=== PATIENT | male | born 2000 | race Caucasian/White ===

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

== ENCOUNTER 2022-11-30 02:56 | Emergency (ER) | payer SELFPAY ==
[~2022-11-30] VITALS: Ht 165.1 cm; Wt 95.3 kg
[~2022-11-30 02:56] MED LIST changes: +METH4TAB10 PO
--- NOTE | 2022-11-30 03:23 | ED General ---
General Chief Complaint: Oral/Throat Problems Stated Complaint: THROAT PX X 2WKS Source of Information: Patient (JAMESRYDER) History of Present Illness Date Seen by Provider: Nov 30, 2022 Time Seen by Provider: 03:17 Initial Comments 22yo M with no PMH presents to the ED with c/o R sided sore throat with radiation to R ear that's been present for the past 1.5weeks. Pt states that he was tested on 11/18 for strep with culture which was negative. Pt has been taking 1000mg of ibuprofen Q3H for the past 4-5 days with relief. Last dose at 130am today. Pt has been using chloraseptic spray intermittently with no relief. States exacerbation of pain with swallowing. Denies nausea, vomiting, cough, nasal congestion, voice changes, rashes, food getting stuck in throat prior to onset, h/o seasonal allergies, recent sick contacts, and recent COVID test. Pt has been vaccinated for COVID. Timing/Duration: 1 Week Modifying Factors: improves with Medication Associated Systoms: Denies Symptoms (RYDER RAMIREZ) Allergies and Home Medications Allergies Coded Allergies: No Known Drug Allergies (Unverified , 05/19/12) Patient Home Medication List Home Medication List Reviewed: Yes (RYDER RAMIREZ) Home Medication List Reviewed: Yes (MIKE GANT MD) Amoxicillin/Clavulanate K (Augmentin 875-125 Tablet) 1 Tab Tablet, 1 TAB PO BID Prescribed by: STORMY JACOME on 10/05/1242 Antipyrine/Benzocaine/Glycerin (Auralgan Ear Drops) 14 Ml Drops, 1-2 DROPS EACH EAR Q 1 - 2 HRS PRN Prescribed by: STORMY JACOME on 10/05/1242 Methylprednisolone (Methylprednisolone Dose Pack) 4 Mg Tab.ds.pk, 4 MG PO UD Prescribed by: MOUNA FUENTES on 03/25/202001 Review of Systems Review of Systems Constitutional: no symptoms reported EENTM: throat pain Respiratory: no symptoms reported Cardiovascular: no symptoms reported Gastrointestinal: no symptoms reported Genitourinary: no symptoms reported Musculoskeletal: no symptoms reported Skin: no symptoms reported Psychiatric/Neurological: No Symptoms Reported Hematologic/Lymphatic: No Symptoms Reported Immunological/Allergic: no symptoms reported (RYDER RAMIREZ) All Other Systems Reviewed Negative Unless Noted: Yes (RYDER RAMIREZ) Past Ryoqmxl-Jdvhxv-Nlihnv Hx Patient Social History Tobacco Use?: No Substance use?: No Alcohol Use?: No Pt feels they are or have been: No (RYDER RAMIREZ) Immunizations Up To Date First/Initial COVID19 Vaccinat: 2020 Second COVID19 Vaccination Luis Enrique: 2020 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 (RYDER RAMIREZ) Seasonal Allergies Seasonal Allergies: No (RYDER RAMIREZ) Past Medical History Surgeries: Yes (DENTAL) Respiratory: No Cardiac: No Neurological: No Gastrointestinal: No Musculoskeletal: No Endocrine: No Cancer: No Psychosocial: No Integumentary: No Blood Disorders: No (RYDER RAMIREZ) Family Medical History No Pertinent Family Hx (RYDER RAMIREZ) Physical Exam Vital Signs Vital Signs - First Documented 11/30/22 03:03 Temp 36.8 Pulse 75 Resp 16 B/P (MAP) 132/76 (94) Pulse Ox 97 O2 Delivery Room Air (MIKE GANT MD) Vital Signs Capillary Refill : (RYDER RAMIREZ) Height, Weight, BMI Height: '" Weight: lbs. oz. kg; 34.00 BMI Method: General Appearance: No Apparent Distress, WD/WN HEENT: PERRL/EOMI, Moist Mucous Membranes, Pharyngeal Erythema (mild), Other (mild serous effusions of b/l ears; R>L) Neck: Non Tender, Supple Respiratory: Lungs Clear, Normal Breath Sounds, No Accessory Muscle Use, No Respiratory Distress Cardiovascular: Regular Rate, Rhythm, No Murmur Neurologic/Psychiatric: Alert, Oriented x3, Normal Mood/Affect Skin: Normal Color, Warm/Dry Lymphatic: No Adenopathy (RYDER RAMIREZ) HEENT: Other (mild serous effusions of b/l ears; R>L) (MIKE GANT MD) Progress/Results/Core Measures Suspected Sepsis SIRS Temperature: Pulse: Respiratory Rate: Blood Pressure / Mean: (RYDER RAMIREZ) Results/Orders My Orders Orders - MIKE GANT MD Antacid Suspension (Antacid Suspension (11/30/22 03:45) Lidocaine 2% Viscous 15 Ml (Xylocaine Vi (11/30/22 03:45) (MIKE GANT MD) Medications Given in ED (MIKE GANT MD) Vital Signs/I&O 11/30/22 11/30/22 03:03 03:56 Temp 36.8 Pulse 75 77 Resp 16 16 B/P (MAP) 132/76 (94) 127/78 Pulse Ox 97 98 O2 Delivery Room Air Room Air (MIKE GANT MD) Vital Signs/I&O Capillary Refill : (RYDER RAMIREZ) Progress Note : Time: 03:46 Progress Note Patient seen and evaluated by me. I have reviewed the medical student's documentation and agree. Patient exam is generally unremarkable for any acute findings. He has minimal pharyngeal erythema. Mild serous effusions to both TM's without erythema. No cervical LAD. ddx includes viral pharyngitis, chronic acid reflux, sinus drainage. Patient strongly advised to curb his ibuprofen usage as he is taking 800mg (he reports) every 3 hours. He was treated with some viscous lidocaine and maalox in the ER. Encouraged to gargle and start an acid gas specialist. I also recommended allergy medication such as zyrtec for the fluid in his ears. No concerning findings for bacterial infection (he had been tested for strep and covid recently and these were negative.) Patient advised to follow up with his PCP. Return precautions provided. (MIKE GANT MD) Departure Impression Primary Impression: Odynophagia Disposition: 01 HOME, SELF-CARE Condition: Stable Departure-Patient Inst. Decision time for Depature: 03:50 (MIKE GANT MD) Referrals: [facility],LOCAL PHYSICIAN (PCP) Primary Care Physician Add. Discharge Instructions: You should start an over the counter acid gas specialist such as generic Prilosec as chronic acid reflux can cause painful swallowing that can be worse in the mornings. Zyrtec or Minerva can help with the fluid in your right ear. Please follow packaging instructions. Do not take more than 4 ibuprofen tablets every 8 hours. Please make a follow up appointment with a primary care physician to further evaluate the cause of your sore throat. If you have any other new, emergent or concerning symptoms that develop, please return to the Emergency Department for re-evaluation. Verification and Attestation of Medical Student E/M Service A medical student performed and documented this service in my presence. I reviewed and verified all information documented by the medical student and made modifications to such information, when appropriate. I personally performed the physical exam and medical decision making. Mike Gant, Nov 30, 2022,03:53 (MIKE GANT MD) RYDER RAMIREZ Nov 30, 2022 03:23 MIKE GANT MD Nov 30, 2022 03:53
[2022-11-30] MEDS ORDERED: LIDOCAINE 2% VISCOUS 15 ML UDC PO ONE (03:45)
[2022-11-30] MEDS ORDERED: ANTACID SUSPENSION 30 ML UDC PO ONE (03:45)
[2022-11-30 03:56] VITALS: BP 127/78
== END 2022-11-30 03:56 | disposition home or self-care (01) ==
LOC: EDUNIT# 02:56 → ER 02:59
DX: R13.10 Dysphagia, unspecified (principal)
CPT/HCPCS: 99283